=== PATIENT | male | born 1960 | race Caucasian/White ===

== ENCOUNTER 2020-12-22 09:34 | Emergency (ER) | payer OTHER ==
[~2020-12-22] VITALS: Ht 177.8 cm; Wt 85.9 kg
[2020-12-22 11:09] LABS: BASO % 0.3 % (0.0-1.0); EOS % 0.1 % (0.0-3.0); HEMATOCRIT 40.5 % (42.0-52.0); HEMOGLOBIN 14.3 g/dl (13.5-17.5); LYMPH # 1.3 10^3/uL (1.5-5.0); MEAN CORPUSCULAR HEMOGLOBIN 33.6 pg (27.0-33.0); MEAN CORPUSCULAR HGB CONC 35.3 g/dl (32.0-36.5); MEAN CORPUSCULAR VOLUME 95.1 fl (80.0-96.0); MONO # 1.2 10^3/uL (0.0-0.8); NEUTROPHILS # 5.1 10^3/uL (1.5-8.5); NEUTROPHILS % 66.2 % (36.0-66.0); RED BLOOD COUNT 4.26 10^6/uL (4.30-6.10); WHITE BLOOD COUNT 7.8 10^3/uL (4.0-10.0)
[2020-12-22 11:22] LABS: INR 1.29; PROTHROMBIN TIME 16.5 SECONDS (12.7-14.5)
[2020-12-22 11:36] LABS: PLATELET COUNT, AUTOMATED 82 10^3/uL (150-450)
[2020-12-22] MEDS ORDERED: LISI40TA4 PO (11:44)
[2020-12-22] MEDS ORDERED: ATEN25TA PO (11:44)
[2020-12-22 11:47] LABS: ALBUMIN 3.6 GM/DL (3.2-5.2); ALT/SGPT 38 U/L (12-78); BILIRUBIN,TOTAL 2.9 MG/DL (0.2-1.0); BLOOD UREA NITROGEN 3 MG/DL (7-18); CARBON DIOXIDE LEVEL 29 MEQ/L (21-32); CHLORIDE LEVEL 92 MEQ/L (98-107); GLOMERULAR FILTRATION RATE > 60.0 (>56); GLUCOSE, FASTING 114 MG/DL (70-100); MAGNESIUM LEVEL 1.7 MG/DL (1.8-2.4); POTASSIUM SERUM 2.7 MEQ/L (3.5-5.1); SODIUM LEVEL 131 MEQ/L (136-145)
[2020-12-22] MEDS ORDERED: ISOVUE-370 76% 100ML VIAL As Ordered ONE (11:51)
[2020-12-22] MEDS ORDERED: POTASSIUM CHLORIDE 10MEQ SR TABLET PO ONE (12:10)
--- NOTE | 2020-12-22 12:19 | REP ---
INDICATION: Abd pain. COMPARISON: None. TECHNIQUE: Standard helical technique after the intravenous administration of 100 cc Isovue 370 FINDINGS: The lung bases are clear. The liver, gallbladder, spleen, pancreas, adrenal glands, and kidneys are within normal limits. The abdominal aorta and para aortic regions are within normal limits. The bowel loops and the mesenteries are within normal limits. There are a few scattered descending colon diverticula. There is no free fluid or free air. There is no mass or adenopathy. Bone window technique throughout the examination shows the osseous structures to be within normal limits. IMPRESSION: CT findings are within normal limits. <Electronically signed by John Caro > 12/22/20 2294
[2020-12-22] MEDS ORDERED: POTA1TAB14 PO (12:56)
[2020-12-22 14:04] VITALS: BP 162/94
== END 2020-12-22 14:05 | disposition home or self-care (01) ==
LOC: M ED 09:34
DX: K92.2 Gastrointestinal hemorrhage, unspecified (principal); I10 Essential (primary) hypertension; K64.9 Unspecified hemorrhoids; Z88.0 Allergy status to penicillin; Z88.8 Allergy status to other drugs, medicaments and biological substances
CPT/HCPCS: 74177; 80053; 83735; 85025; 85049; 85055; 85610; 86850; 86900; 86901; 99284; Q9967